=== PATIENT | female | born 1945 | race Caucasian/White ===

== ENCOUNTER → 2024-10-06 08:13 | Outpatient (REF) | payer OTHER, SELFPAY | LOC: HWWDC 08:13 | PROVIDERS: ATTENDING PHYSICIAN Family Medicine | DX: Z12.31 Encounter for screening mammogram for malignant neoplasm of breast (principal) | CPT/HCPCS: 77063; 77067 ==

== ENCOUNTER 2025-02-08 06:28 | Day surgery (SDC) | payer OTHER, SELFPAY | END 2025-02-08 11:22 | disposition home or self-care (01) | LOC: GI 06:28 | PROVIDERS: ATTENDING PHYSICIAN Internal Medicine Gastroenterology; FAMILY PHYSICIAN Family Medicine | DX: Z12.11 Encounter for screening for malignant neoplasm of colon (principal); K64.8 Other hemorrhoids; K57.30 Diverticulosis of large intestine without perforation or abscess without bleeding; K62.89 Other specified diseases of anus and rectum; D12.3 Benign neoplasm of transverse colon; D12.5 Benign neoplasm of sigmoid colon; K63.5 Polyp of colon | CPT/HCPCS: 45385; 88305; 93005 ==

== ENCOUNTER → 2025-10-07 08:50 | Outpatient (REF) | payer OTHER, SELFPAY | LOC: HWWDC 08:50 | PROVIDERS: ATTENDING PHYSICIAN Family Medicine | DX: Z12.31 Encounter for screening mammogram for malignant neoplasm of breast (principal) | CPT/HCPCS: 77063; 77067 ==